=== PATIENT | male | born 1955 | race Caucasian/White ===

== ENCOUNTER → 2024-10-28 10:16 | Outpatient (REF) | payer MEDICARE, SELFPAY | LOC: HWRCS 10:16 | PROVIDERS: ATTENDING PHYSICIAN Internal Medicine Cardiovascular Disease; FAMILY PHYSICIAN Nurse Practitioner Family | DX: R06.02 Shortness of breath (principal) | CPT/HCPCS: 93306 ==

== ENCOUNTER → 2024-11-10 07:05 | Outpatient (REF) | payer MEDICARE, SELFPAY | LOC: HWRCS 07:05 | PROVIDERS: ATTENDING PHYSICIAN Internal Medicine Cardiovascular Disease; FAMILY PHYSICIAN Nurse Practitioner Family | DX: R06.02 Shortness of breath (principal) | CPT/HCPCS: 78452; 93017; A9500 ==

== ENCOUNTER 2024-11-19 06:38 | Day surgery (SDC) | payer MEDICARE, SELFPAY ==
[2024-11-19 08:20] VITALS: BP 152/85; BMI 34.4
[2024-11-19 08:25] VITALS: BP 152/85
[2024-11-19 08:34] LABS: Glucose - Point of Care 119 mg/dl (70-99)
[2024-11-19 10:14] VITALS: BP 115/73
[2024-11-19 10:15] VITALS: BP 116/78
[2024-11-19 10:30] VITALS: BP 119/74
[2024-11-19 10:45] VITALS: BP 119/74
== END 2024-11-19 10:55 | disposition home or self-care (01) ==
LOC: GI 06:38
PROVIDERS: ATTENDING PHYSICIAN Internal Medicine
DX: Z12.11 Encounter for screening for malignant neoplasm of colon (principal); K57.30 Diverticulosis of large intestine without perforation or abscess without bleeding; R12 Heartburn; K29.70 Gastritis, unspecified, without bleeding; K29.60 Other gastritis without bleeding; K22.70 Barrett's esophagus without dysplasia; D12.3 Benign neoplasm of transverse colon; D12.2 Benign neoplasm of ascending colon; D12.8 Benign neoplasm of rectum; Z80.0 Family history of malignant neoplasm of digestive organs; Z86.0101 Personal history of adenomatous and serrated colon polyps
CPT/HCPCS: 45390; 45385; 45380; 43239; 88305; 82962; 88342

== ENCOUNTER → 2025-03-31 15:16 | Outpatient (REF) | payer MEDICARE, SELFPAY | LOC: HWRAD 15:16 | PROVIDERS: ATTENDING PHYSICIAN Nurse Practitioner Family | DX: R06.09 Other forms of dyspnea (principal) | CPT/HCPCS: 71046 ==

== ENCOUNTER → 2025-05-17 14:00 | Outpatient (REF) | payer MEDICARE, SELFPAY | LOC: HWRAD 14:00 | PROVIDERS: ATTENDING PHYSICIAN Internal Medicine | DX: R05.1 Acute cough (principal) | CPT/HCPCS: 71046 ==

== ENCOUNTER → 2025-05-19 13:25 | Outpatient (REF) | payer MEDICARE, SELFPAY | LOC: RAD 13:25 | PROVIDERS: ATTENDING PHYSICIAN Internal Medicine; FAMILY PHYSICIAN Nurse Practitioner Family | DX: R91.1 Solitary pulmonary nodule (principal) | CPT/HCPCS: 71260; Q9967 ==